=== PATIENT | female | born 1955 | race Caucasian/White ===

== ENCOUNTER 2017-04-21 19:54 | Inpatient (IN) | payer SELFPAY ==
[~2017-04-21] VITALS: Ht 152.4 cm; Wt 67.8 kg
[2017-04-22 02:15] VITALS: BP 145/78; PULSE 88; RESP 20; TEMP 97.2; O2SAT 95
[2017-04-22] MEDS ORDERED: diphenhydrAMINE HCL 50 MG CAP - HS PRN PO (03:15)
[2017-04-22] MEDS ORDERED: diphenhydrAMINE HCL 50 MG/ML VIAL - HS PRN IM (03:15)
[2017-04-22] MEDS ORDERED: ALUMINUM/MAGNESIUM/SIMETH 30 ML CUP PO PRN (03:15)
[2017-04-22] MEDS ORDERED: hydrOXYzine HCL 50 MG TAB PO PRN (03:15)
[2017-04-22] MEDS ORDERED: ACETAMINOPHEN 325 MG TAB PO PRN (03:15)
[2017-04-22] MEDS: NICOTINE 21 MG/24 HR PATCH T-DERMAL SCH (08:46)
[2017-04-22] MEDS ORDERED: LORazepam 2 MG/ML VIAL IV PUSH PRN ×4 (10:45)
[2017-04-22] MEDS ORDERED: FLUMAZENIL 0.5 MG/5 ML VIAL IV PUSH PRN (10:45)
[2017-04-22] MEDS ORDERED: NICOTINE 4 MG/GUM CHEW PRN (10:45)
[2017-04-22] MEDS ORDERED: LORazepam 1 MG TAB PO PRN (10:45)
[2017-04-22] MEDS ORDERED: diphenhydrAMINE HCL 50 MG CAP PO PRN (10:45)
[2017-04-22] MEDS ORDERED: LORazepam 2 MG TAB PO PRN (10:45)
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
--- NOTE | 2017-04-22 15:59 | PD.CONS ---
HPI Service [facility] Consult Requested By Dr. Motta Reason for Consult Medical management Primary Care Physician No Primary Care Physician Diagnoses: History of Present Illness The patient is a 61-year-old female with past medical history of bipolar disorder who is presenting to the hospital after a suicide attempt. The patient says she has been under a lot of stress recently and ended up taking a lot of Klonopin pills. The patient states that she lives at her cousin's house , who is very demanding. 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 She is constantly working to help her cousin around the house. She doesn't get a chance to get much sleep. She doesn 't get a chance to get much exercise. She says on top of that about 6 months ago she had to put her dog down. She had enough and took 20 1 mg tablets of Klonopin. She was drinking a 7 and 7 at the time. Once she took those medications she realizes she made a mistake and walk to the fire station seeking help. The patient also mentions she has been having a cough for over a month. She says she is prone to bronchitis. She said she was not diagnosed with any lung conditions in the past other than pneumonia. She says that her cousin's had the flu about a month ago and her symptoms got worse then. She endorses clear and green sputum at times. She is wheezing more at nighttime and coughing more at nighttime. She has felt feverish at times. She endorses night sweats. Review of Systems Except as stated in HPI: all other systems reviewed are Neg Past Family Social History Allergies: Coded Allergies: No Known Allergies (Unverified , 04/22/17) Past Medical History Bipolar disorder Pneumonia Past Surgical History Denies Active Ordered Medications Current Medications Medications (Trade) Dose Ordered Sig/Jazmine Route Start Time Stop Time Status Last Admin (Tylenol) 650 mg Q4H PRN PO 04/22/17 03:15 (Milk Of Magnesia Liq) 30 ml DAILY PRN PO 04/22/17 03:15 (Mag-Al Plus Susp Liq) 30 ml Q6H PRN PO 04/22/17 03:15 (Habitrol 21 Mg Patch.24 Hr) 1 patch DAILY T-DERMAL 04/22/17 09:00 04/22/17 08:46 Miscellaneous Information 1 HS T-DERMAL 04/22/17 21:00 (Benadryl) 50 mg Q6H PRN PO 04/22/17 10:45 (CeleXA) 40 mg HS PO 04/22/17 21:00 (KlonoPIN) 2 mg HS PO 04/22/17 21:00 (Nicotine Gum) 4 mg Q2H PRN CHEW 04/22/17 10:45 (Folate) 1 mg DAILY PO 04/23/17 09:00 04/28/17 08:59 (Vitamin B1) 100 mg DAILY PO 04/23/17 09:00 (Theragran M Tab) 1 tab DAILY PO 04/23/17 09:00 04/28/17 08:59 (Romazicon Inj) 0.2 mg Q1M PRN IV PUSH 04/22/17 10:45 (Ativan) 1 mg Q4H PRN PO 04/22/17 10:45 (Ativan Inj) 1 mg Q4H PRN IV PUSH 04/22/17 10:45 (Ativan) 2 mg Q2H PRN PO 04/22/17 10:45 (Ativan Inj) 2 mg Q2H PRN IV PUSH 04/22/17 10:45 (Ativan Inj) 2 mg Q1H PRN IV PUSH 04/22/17 10:45 (Ativan Inj) 2 mg Q15M PRN IV PUSH 04/22/17 10:45 Family History The patient's sister has a cancer involving her arm Social History The patient smokes up to a pack per day and she has been doing that since she was 19. She has social alcohol use. She denies illicit substances. Physical Exam Vital Signs Vital Signs Date Time Temp Pulse Resp B/P (MAP) Pulse Ox O2 Delivery O2 Flow Rate FiO2 04/22/17 02:15 97.2 88 20 145/78 (100) 95 Physical Exam GENERAL: This is a well-nourished, well-developed patient, in no apparent distress. SKIN: No rashes, ecchymoses or lesions. Cool and dry. HEAD: Atraumatic. Normocephalic. No temporal or scalp tenderness. EYES: Pupils equal round and reactive. Extraocular motions intact. No scleral icterus. No injection or drainage. ENT: Nose without bleeding, purulent drainage or septal hematoma. Throat without erythema, tonsillar hypertrophy or exudate. Uvula midline. Airway patent. NECK: Trachea midline. No JVD or lymphadenopathy. Supple, nontender, no meningeal signs. CARDIOVASCULAR: Regular rate and rhythm without murmurs, gallops, or rubs. RESPIRATORY: Diffuse wheezing and rhonchi. GASTROINTESTINAL: Abdomen soft, non-tender, nondistended. No hepato-splenomegaly , or palpable masses. No guarding. MUSCULOSKELETAL: Extremities without clubbing, cyanosis, or edema. No joint tenderness, effusion, or edema noted. NEUROLOGICAL: Awake and alert. Cranial nerves II through XII intact. Motor and sensory grossly within normal limits. Five out of 5 muscle strength in all muscle groups. Normal speech. PSYCH: Teary-eyed. Assessment and Plan Assessment and Plan Suicide attempt The patient overdosed on Klonopin. She has a history of bipolar disorder. She regrets the suicide attempt. - Management per psychiatry. Cough With the patient's smoking history it sounds like she has undiagnosed COPD. She is prone to bronchitis. - Check a chest x-ray. - Duo nebs 1 and albuterol HFA as needed. - Start Symbicort twice a day. - Tessalon Perles for the cough. - Incentive spirometry. - Encourage ambulation. - Smoking cessation instruction. Alcohol use The patient endorses social alcohol use. - CIWA protocol per psychiatry. PPx: Ambulation Discussed Condition With Patient Gerry Irby DO Apr 22, 2017 15:59
[2017-04-22] MEDS ORDERED: BENZONATATE 100 MG CAP PO ONE (16:00)
[2017-04-22] MEDS ORDERED: BENZONATATE 100 MG CAP PO PRN (16:00)
[2017-04-22] MEDS ORDERED: RESP: ALBUTEROL 2.5 MG/IPRATROPIUM 0.5 MG NEB (SCH) NEB ONE (16:00)
[2017-04-22] MEDS ORDERED: ALBUTEROL SULFATE 90 MCG/ACT HFA 8 GM INHALER INH PRN (16:00)
--- NOTE | 2017-04-22 16:55 | RADRPT ---
EXAM DATE/TIME: 04/22/2017 15:59 [facility] COMPARISON: No previous studies available for comparison. INDICATIONS : Cough MEDICAL HISTORY : None. SURGICAL HISTORY : None. ENCOUNTER: Initial ACUITY: 1 day PAIN SCORE: 0/10 LOCATION: chest FINDINGS: A single view of the chest demonstrates the lungs to be symmetrically aerated without evidence of mas s, infiltrate or effusion. The cardiomediastinal contours are unremarkable. Osseous structures are intact. CONCLUSION: No acute disease. Bg Billings MD on April 22, 2017 at 16:52 Board Certified Radiologist. This report was verified electronically.
[2017-04-22 19:28] VITALS: BP 132/81; PULSE 98; RESP 16; TEMP 98.2; O2SAT 99
[2017-04-22] MEDS: BUDESONIDE-FORMOTEROL 80/4.5 MCG INHALER INH SCH (19:54)
[2017-04-22] MEDS: REMOVE OLD NICOTINE PATCH T-DERMAL SCH (21:00)
[2017-04-22] MEDS: clonazePAM 1 MG TAB PO SCH (21:36)
[2017-04-22] MEDS: MAGNESIUM HYDROXIDE SUSP 30 ML CUP PO PRN ×2 (21:36→21:38)
[2017-04-22] MEDS: CITALOPRAM HYDROBROMIDE 40 MG TAB PO SCH (21:36)
[2017-04-23 06:14] VITALS: BP 153/73; PULSE 88; RESP 18; TEMP 98.1; O2SAT 99
[2017-04-23] MEDS ORDERED: MULTIVITAMINS/MINERALS THERAPEUTIC TAB PO SCH (09:00)
[2017-04-23] MEDS ORDERED: cloNIDine HCL 0.1 MG TAB PO PRN (09:15)
--- NOTE | 2017-04-23 09:32 | HHI.PYPN ---
Subjective Chief Complaint: overdose Remarks Patient was seen and case discussed with nursing. Patient continues to describe her attempt was an impulsive act denies any current suicidal or homicidal ideation intent or plan. Mood is "a little depressed." Eating and sleeping well. Tolerating medications well. No outbursts Mental Status Examination Appearance: Appropriate Consciousness: Alert Orientation: x4 Motor Activity: Normal gait Speech: Unremarkable Language: Adequate Fund of Knowledge: Adequate Attention and Concentration: Adequate Memory: Unremarkable Mood: Appropriate Affect: Other (tearful at times) Thought Process & Associations: Intact, Logical, Linear Thought Content: Appropriate Hallucination Type: None Delusion Type: None Suicidal Ideation: No Suicidal Plan: No Suicidal Intention: No Homicidal Ideation: No Homicidal Plan: No Homicidal Intention: No Insight: Fair Judgment: Impulsive Results Labs Test 04/23/17 08:17 Vitals/IOs Vital Signs Date Time Temp Pulse Resp B/P (MAP) Pulse Ox O2 Delivery O2 Flow Rate FiO2 04/23/17 06:14 98.1 88 18 153/73 (99) 99 Intake and Output 04/23/17 04/23/17 04/24/17 08:00 16:00 00:00 Intake Total 360 ml Balance 360 ml Assessment & Plan Problem List: (1) Adjustment disorder with mixed disturbance of emotions and conduct ICD Codes: F43.25 - Adjustment disorder with mixed disturbance of emotions and conduct (2) History of psychiatric disorder ICD Codes: Z86.59 - Personal history of other mental and behavioral disorders Assessment & Plan Continue current treatment plan Justification for Cont. Inpt. Patient will decompensate in a less restrictive setting Request HC Surrog/Guard Advoc?: No Mumtaz Paige DO Apr 23, 2017 09:32
[2017-04-23 09:38] LABS: BICARBONATE 28.5 MEQ/L (21.0-32.0); BLOOD UREA NITROGEN 11 MG/DL (7-18); CALCIUM 8.6 MG/DL (8.5-10.1); CHLORIDE 106 MEQ/L (98-107); CREATININE 0.74 MG/DL (0.50-1.00); GLOMERULAR FILTRATION RATE 80 ML/MIN (>89); GLUCOSE,RANDOM 132 MG/DL (74-106); SODIUM (NA) 142 MEQ/L (136-145)
[2017-04-23 09:39] LABS: CHOLESTEROL 177 MG/DL (120-200); TRIGLYCERIDES 190 MG/DL (42-150)
[2017-04-23 09:41] LABS: CHOLESTEROL/ HDL RATIO 3.45 RATIO; HDL CHOLESTEROL 51.2 MG/DL (40.0-60.0); LDL CHOLESTEROL 88 MG/DL (0-99)
[2017-04-23] MEDS: FOLIC ACID 1 MG TAB PO SCH (09:50)
[2017-04-23] MEDS: THIAMINE HCL 100 MG TAB PO SCH (09:50)
[2017-04-23] MEDS: NICOTINE 21 MG/24 HR PATCH T-DERMAL SCH (09:50)
[2017-04-23] MEDS: BUDESONIDE-FORMOTEROL 80/4.5 MCG INHALER INH SCH ×2 (09:51→20:45)
[2017-04-23 13:00] LABS: HEMOGLOBIN A1C 5.8 % (4.3-6.0)
--- NOTE | 2017-04-23 16:37 | HHI.PR ---
Subjective Remarks The pt was breathing better and her cough is improved. She does have some wheezing at night. She hopes to go home tomorrow. Discussed with nursing, who has no concerns. Objective Vitals Vital Signs Date Time Temp Pulse Resp B/P (MAP) Pulse Ox O2 Delivery O2 Flow Rate FiO2 04/23/17 06:14 98.1 88 18 153/73 (99) 99 04/22/17 19:28 98.2 98 16 132/81 (98) 99 I/O 04/22/17 04/22/17 04/22/17 04/23/17 04/23/17 04/23/17 07:00 15:00 23:00 07:00 15:00 23:00 Intake Total 360 ml Balance 360 ml Intake Oral 360 ml Result Diagram: 04/23/17 0817 Imaging Last Impressions Chest X-Ray 04/22/17 0000 Signed Impressions: Service Date/Time: Saturday, April 22, 2017 15:59 - CONCLUSION: No acute disease. Bg Billings MD Objective Remarks GENERAL: This is a well-nourished, well-developed patient, in no apparent distress. SKIN: No rashes, ecchymoses or lesions. Cool and dry. HEAD: Atraumatic. Normocephalic. No temporal or scalp tenderness. EYES: Pupils equal round and reactive. Extraocular motions intact. No scleral icterus. No injection or drainage. ENT: Nose without bleeding, purulent drainage or septal hematoma. Throat without erythema, tonsillar hypertrophy or exudate. Uvula midline. Airway patent. NECK: Trachea midline. No JVD or lymphadenopathy. Supple, nontender, no meningeal signs. CARDIOVASCULAR: Regular rate and rhythm without murmurs, gallops, or rubs. RESPIRATORY: Improved wheezing. GASTROINTESTINAL: Abdomen soft, non-tender, nondistended. No hepato-splenomegaly , or palpable masses. No guarding. MUSCULOSKELETAL: Extremities without clubbing, cyanosis, or edema. No joint tenderness, effusion, or edema noted. NEUROLOGICAL: Awake and alert. Cranial nerves II through XII intact. Motor and sensory grossly within normal limits. Five out of 5 muscle strength in all muscle groups. Normal speech. PSYCH: Mood and affect appropriate. Medications and IVs Current Medications Medications (Trade) Dose Ordered Sig/Jazmine Route Start Time Stop Time Status Last Admin (Tylenol) 650 mg Q4H PRN PO 04/22/17 03:15 (Milk Of Magnesia Liq) 30 ml DAILY PRN PO 04/22/17 03:15 04/22/17 21:38 (Mag-Al Plus Susp Liq) 30 ml Q6H PRN PO 04/22/17 03:15 (Habitrol 21 Mg Patch.24 Hr) 1 patch DAILY T-DERMAL 04/22/17 09:00 04/23/17 09:50 Miscellaneous Information 1 HS T-DERMAL 04/22/17 21:00 (Benadryl) 50 mg Q6H PRN PO 04/22/17 10:45 (CeleXA) 40 mg HS PO 04/22/17 21:00 04/22/17 21:36 (KlonoPIN) 2 mg HS PO 04/22/17 21:00 04/22/17 21:36 (Nicotine Gum) 4 mg Q2H PRN CHEW 04/22/17 10:45 (Folate) 1 mg DAILY PO 04/23/17 09:00 04/28/17 08:59 04/23/17 09:50 (Vitamin B1) 100 mg DAILY PO 04/23/17 09:00 04/23/17 09:50 (Theragran M Tab) 1 tab DAILY PO 04/23/17 09:00 04/28/17 08:59 04/23/17 09:50 (Romazicon Inj) 0.2 mg Q1M PRN IV PUSH 04/22/17 10:45 (Ativan) 1 mg Q4H PRN PO 04/22/17 10:45 04/22/17 18:57 (Ativan Inj) 1 mg Q4H PRN IV PUSH 04/22/17 10:45 (Ativan) 2 mg Q2H PRN PO 04/22/17 10:45 (Ativan Inj) 2 mg Q2H PRN IV PUSH 04/22/17 10:45 (Ativan Inj) 2 mg Q1H PRN IV PUSH 04/22/17 10:45 (Ativan Inj) 2 mg Q15M PRN IV PUSH 04/22/17 10:45 (Tessalon) 200 mg TID PRN PO 04/22/17 16:00 04/22/17 21:36 (Proair Hfa Inh) 2 puff Q4H PRN INH 04/22/17 16:00 (Symbicort 80-4.5 Mcg Inh) 2 puff Q12HR INH 04/22/17 21:00 04/23/17 09:51 (Catapres) 0.1 mg Q6H PRN PO 04/23/17 09:15 A/P Assessment and Plan Suicide attempt The patient overdosed on Klonopin. She has a history of bipolar disorder. She regrets the suicide attempt. - Management per psychiatry. Cough With the patient's smoking history it sounds like she has undiagnosed COPD. She is prone to bronchitis. CXR unremarkable. - Duo nebs 1 and albuterol HFA as needed. - continue Symbicort twice a day. - Tessalon Perles as needed for the cough. - Incentive spirometry. - Encourage ambulation. - Smoking cessation instruction. - recommend outpt pulmonology referral for PFTs. Alcohol use The patient endorses social alcohol use. - CIWA protocol per psychiatry. Upset stomach The pt thinks the multivitamin might be upsetting her stomach. - d/c MVI. HTN Blood pressure mildly elevated. - clonidine as needed. - follow-up with PCP. PPx: Ambulation Discharge Planning Medicine will sign off on this stable pt. Please reconsult as needed. Gerry Irby DO Apr 23, 2017 16:37
[2017-04-23 18:09] VITALS: BP 141/83; PULSE 88; RESP 16; TEMP 98.1; O2SAT 98
[2017-04-23] MEDS: CITALOPRAM HYDROBROMIDE 40 MG TAB PO SCH (20:45)
[2017-04-23] MEDS: clonazePAM 1 MG TAB PO SCH (20:45)
[2017-04-23] MEDS: REMOVE OLD NICOTINE PATCH T-DERMAL SCH (21:00)
[2017-04-23] MEDS: MAGNESIUM HYDROXIDE SUSP 30 ML CUP PO PRN (21:12)
[2017-04-24 06:38] VITALS: BP 118/75; PULSE 82; RESP 18; TEMP 98.1; O2SAT 96
[2017-04-24] MEDS: THIAMINE HCL 100 MG TAB PO SCH (08:46)
[2017-04-24] MEDS: FOLIC ACID 1 MG TAB PO SCH (08:46)
[2017-04-24] MEDS: BUDESONIDE-FORMOTEROL 80/4.5 MCG INHALER INH SCH (08:46)
[2017-04-24] MEDS: NICOTINE 21 MG/24 HR PATCH T-DERMAL SCH (08:47)
[2017-04-24] MEDS ORDERED: CELE40TA PO (14:01)
[2017-04-24] MEDS ORDERED: THIA100 PO (14:01)
[2017-04-24] MEDS ORDERED: Budeson-Formot 80-4.5 Mcg Inh INH (14:01)
[2017-04-24] MEDS ORDERED: CLON2TAB PO (14:01)
[2017-04-24] MEDS ORDERED: FOLI1TAB6 PO (14:01)
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
== END 2017-04-24 16:00 | disposition home or self-care (01) | DRG 882 ==
LOC: H260 04-22 02:55
PROVIDERS: ADMIT Student in an Organized Health Care Education/Training Program; ATTEND Student in an Organized Health Care Education/Training Program
DX: F43.25 Adjustment disorder with mixed disturbance of emotions and conduct (principal); I10 Essential (primary) hypertension; J44.9 Chronic obstructive pulmonary disease, unspecified; R73.9 Hyperglycemia, unspecified; T42.4X2A Poisoning by benzodiazepines, intentional self-harm, initial encounter; K30 Functional dyspepsia; F17.210 Nicotine dependence, cigarettes, uncomplicated
CPT/HCPCS: 71045; 80048; 80061; 83036; 94150